=== PATIENT | female | born 1990 | race Caucasian/White ===

== ENCOUNTER 2020-06-20 12:25 | Day surgery (SDC) | payer BC ==
[2020-06-20] MEDS ORDERED: hydrALAZINE 20 MG/ML VIAL SLOW IVP PRN (13:27)
--- NOTE | 2020-06-20 13:30 | PDOC.LDHP ---
Labor and Delivery H&P Chief complaint: other (spotting) HPI: 29 y/o G1 at 21w2d, patient of Dr. Fisher, presents with spotting at home that has now resolved. She has had cramping for several weeks but the spotting today was the first episode. Denies LOF, heavy VB, or other concerns. +FM ROS neg for HEENT, cv, pulm, gi, gu, neuro, psych, skin, musculoskeletal or constitutionals sx other than mentioned above. OB History Details: First Past Medical History: Childhood asthma, no meds Current medications: pre-abhishek vitamins Previous surgical history: none Allergies/Adverse Reactions: Allergies Allergy/AdvReac Type Severity Reaction Status Date / Time Sulfa (Sulfonamide Allergy Unverified 06/20/20 13:33 Antibiotics) Social history: none - Physical Exam Vital signs reviewed and normal: yes General: NAD, resting Lungs: nonlabored breathing Abdomen: gravid Extremeties: no edema FHT: category 1 (130s) [place] contractions every: none - Vaginal Exam cm dilated: 0 (scant blood in vault, no active bleeding seen) Effacement: 0% Station: -3 - OB Labs Blood type: O RH: positive - Assessment 29 y/o G1 at 21w2d with no e/o active bleeding or acute process. +FHTs - Plan -: D/c home with precautions. Advised to keep all appointments.
[2020-06-20 13:51] VITALS: BMI 20.5
== END 2020-06-20 14:37 | disposition home or self-care (01) ==
LOC: ERS 12:25 → L&D/OP 13:13
PROVIDERS: ATTEND Obstetrics & Gynecology
DX: O26.852 Spotting complicating pregnancy, second trimester (principal); Z3A.21 21 weeks gestation of pregnancy; Z88.2 Allergy status to sulfonamides
CPT/HCPCS: 99283

== ENCOUNTER 2022-03-19 13:56 | Outpatient (CLI) | payer BC | END 2022-03-19 13:57 | disposition home or self-care (01) | LOC: BICULT 13:56 | PROVIDERS: ATTEND Advanced Practice Midwife | DX: N63.10 Unspecified lump in the right breast, unspecified quadrant (principal) ==